=== PATIENT | male | born 1960 | race Asian ===

== ENCOUNTER 2018-12-03 07:18 | Day surgery (SDC) | payer BC ==
[~2018-12-03 07:18] MED LIST: EPINEPHrine 0.1 MG/ML SYG; PROPOFOL 200 MG INJ
[2018-12-03] MEDS ORDERED: PROPOFOL 20 ML (08:05)
[2018-12-03] MEDS ORDERED: ETOMIDATE 20 MG INJ (08:05)
[2018-12-03] MEDS ORDERED: EPINEPHrine 0.1 MG/ML SYG (09:05)
== END 2018-12-03 09:46 | disposition home or self-care (01) ==
LOC: GIL 07:18
DX: Z12.11 Encounter for screening for malignant neoplasm of colon (principal); K29.50 Unspecified chronic gastritis without bleeding; K64.9 Unspecified hemorrhoids; K20.8 Other esophagitis; K26.3 Acute duodenal ulcer without hemorrhage or perforation
CPT/HCPCS: 43239; 88305; 88312